=== PATIENT | male | born 1980 | race Two or more races ===

== ENCOUNTER 2021-05-08 10:00 | Inpatient (IN) | payer MEDICAID, OTHER ==
[~2021-05-08] VITALS: Ht 177.8 cm; Wt 90.7 kg
[2021-05-08] MEDS ORDERED: IV NORMAL SALINE 1000 ML BAG IV ONE (10:15)
[2021-05-08 10:35] LABS: HEMATOCRIT 55.2 % (36.7-47.1); MEAN CORPUSCULAR HEMOGLOBIN 29.7 uug (23.8-33.4); MEAN CORPUSCULAR VOLUME 89.6 fL (73.0-96.2); PLATELET COUNT (AUTO) 263 K/uL (152-348)
--- NOTE | 2021-05-08 10:37 | NUR ---
CALLED PT'S HOME PHONE NUMBER FURNISHED BY HIMSELF - WAS ABLE TO TALK TO AUNT - WHO FURNISHED LIMITTED INFORMATION ABOUT PATIENT - ALL OTHER MEMBERS OF FAMILY ARE OUT OF THE COUNTRY AT THIS TIME.
[2021-05-08 10:42] LABS: *BILIRUBIN,URIN 1+ (NEGATIVE); *BLOOD, URINE NEGATIVE (NEGATIVE); *CLARITY,URINE CLEAR (CLEAR); *COLOR,URINE YELLOW (YELLOW); *KETONES,URINE 1+ (NEGATIVE); *UROBILINOGEN,URINE 0.2 E.U./dl (NORMAL); LEUKOCYTE ESTERASE ,URINE NEGATIVE (NEGATIVE); NITRITE, URINE POSITIVE (NEGATIVE); PH,URINE 5.5 (5.0-8.0); UGLUCOSE NEGATIVE (NEGATIVE)
[2021-05-08 10:57] LABS: CARBON DIOXIDE 23 mmol/L (21-32); CHLORIDE 104 mmol/L (98-107); CREATININE 1.7 mg/dL (0.6-1.3); GLUCOSE 154 mg/dL (74-106); POTASSIUM 4.6 mmol/L (3.5-5.1); UREA NITROGEN, BLOOD 42 mg/dL (7-18)
--- NOTE | 2021-05-08 10:59 | NUR ---
PT IS IN ROOM #1B. DR HOGAN EVALUATED THE PT.
[2021-05-08 11:00] LABS: *AMPHETAMINE, URINE POSITIVE (NEGATIVE); *CANNABINOID, URINE NEGATIVE (NEGATIVE); *COCCAINE, URINE NEGATIVE (NEGATIVE); *OPIATE, URINE NEGATIVE (NEGATIVE); *PHENCYCLIDINE SCREEN,URINE NEGATIVE (NEGATIVE)
[2021-05-08 11:00] LABS: ETHANOL < 3 MG/DL (0-0)
[2021-05-08 11:03] LABS: ALANINE AMINOTRANSFERASE 65 U/L (16-63); ALKALINE PHOSPHATASE 59 U/L (50-136); ASPARTATE AMINOTRANSFERASE 42 U/L (15-37); BILIRUBIN,DIRECT 0.2 mg/dL (0.0-0.2); BILIRUBIN,TOTAL 0.7 mg/dL (0.2-1.0)
[2021-05-08 11:04] LABS: ACETAMINOPHEN < 2.0 ug/mL (10-30)
[2021-05-08] MEDS ORDERED: CEFTRIAXONE 1 G in IV DEXTROSE 5% 50 ML IV ONE (11:15)
[2021-05-08] MEDS ORDERED: IV NS 1000 ML 1,000 ML IV ONE ×2 (11:15→14:15)
[2021-05-08 11:30] LABS: THYROID STIMULATING HORMONE 0.854 mIU/mL (0.358-3.740)
[2021-05-08] MEDS ORDERED: CEFTRIAXONE /D5W 50ML IVPB **ER PYXIS IV ONE (12:01)
[2021-05-08] MEDS ORDERED: PIPERACILLIN SODIUM/TAZOBACTAM 3.375 G in IV DEXTROSE 5% 50 ML IV ONE (13:00)
[2021-05-08 13:12] LABS: BACTERIA,URINE FEW /HPF (NONE SEEN); RBC,URINE 0-3 /HPF (0-3); SQUAMOUS EPITHELIAL CELL,UR FEW /HPF (NONE SEEN)
[2021-05-08] MEDS ORDERED: PIPERACILLIN/TAZOBACTAM/D5W 50 ML IV ONE (14:09)
[2021-05-08] MEDS ORDERED: VANCOMYCIN 1G/D5W 200 ML PIGGYBACK IV ONE (14:15)
[2021-05-08] MEDS ORDERED: VANCOMYCIN IV 200 ML ONE (14:31)
--- NOTE | 2021-05-08 14:57 | NUR ---
REPORT WAS GIVEN TO ROUNDHOUSE SUPERVISOR . PT WAS TRANSFERED TO ROOM #310.
[2021-05-08 15:49] VITALS: BP 95/61
--- NOTE | 2021-05-08 15:55 | NUR ---
admitted patient to telemetry dx: sepsis and seizure. routine admission care done. dr. quispe made aware. belongings list done. bed low and locked. siderails up and padded. nsr on tele. no resp distress. kept comfortable. call light in reach.
[2021-05-08] MEDS ORDERED: ACETAMINOPHEN 325 MG TABLET PO PRN (17:45)
[2021-05-08] MEDS ORDERED: MORPHINE SULFATE 2 MG/1 ML DISP.SYRIN IV PRN (17:45)
[2021-05-08] MEDS ORDERED: LORAZEPAM 2 MG/1 ML VIAL IV PRN (17:45)
[2021-05-08] MEDS ORDERED: MAGNESIUM HYDROXIDE 30 ML LIQUID UDC PO PRN (17:45)
[2021-05-08] MEDS ORDERED: ONDANSETRON 4 MG/2 ML VIAL IV PRN (17:45)
--- NOTE | 2021-05-08 18:45 | NUR ---
patient alert and orientedx2. has been sleeping since he arrived on the unit. unable to answer questions. no resp distress. no s/sx of pain or discomfort. bed low and locked. siderails up. kept comfortable. call light in reach. will endorse to next shift.
[2021-05-08] MEDS: IV NS 1000 ML 1,000 ML IV PRN (18:51)
[2021-05-08 20:00] VITALS: BP 110/69
--- NOTE | 2021-05-08 20:26 | NUR ---
PATIENT ALERT ORIENTED, NO SOB NO CHEST PAIN. PATIENT EYES RED, FACE RED, DROWSY, PATIENT STATED THAT HE DID NOT HAVE COVID VACCINE, NO FLU VACCINE, NO PNA VACCINE, AND HE LIVES WITH HIS AUNT. PATIENT HAS NO PAST MEDICAL HISTORY, CONT TO MONITOR.
[2021-05-08] MEDS: PIPERACILLIN SODIUM/TAZOBACTAM 3.375 G in IV DEXTROSE 5% 50 ML IV SCH (21:48)
[2021-05-09] VITALS: BP 131/65
[2021-05-09] MEDS: VANCOMYCIN IV 1,000 MG in IV DEXTROSE 5% 250 ML IV SCH ×2 (02:33→14:02)
[2021-05-09 04:00] VITALS: BP 110/71
[2021-05-09] MEDS: PIPERACILLIN SODIUM/TAZOBACTAM 3.375 G in IV DEXTROSE 5% 50 ML IV SCH ×4 (05:27→23:14)
[2021-05-09] MEDS: PANTOPRAZOLE SODIUM 40 MG TABLET.DR PO SCH (06:13)
[2021-05-09 06:17] LABS: MEAN CORPUSCULAR HEMOGLOBIN 30.5 uug (23.8-33.4); MEAN CORPUSCULAR VOLUME 91.4 fL (73.0-96.2); PLATELET COUNT (AUTO) 204 K/uL (152-348)
[2021-05-09] MEDS: IV NS 1000 ML 1,000 ML IV PRN (06:32)
--- NOTE | 2021-05-09 06:58 | NUR ---
PATIENT ALERT ORIENTED, NO SOB NO CHEST PAIN, TELE MONITOR SINUS RHYTHM AT THIS TIME, NO COMPLAIN OF PAIN. PATIENT ASSISTED WITH TOILETING FOR SAFETY, CALL LIGHT WITHIN REACH.
[2021-05-09 07:20] LABS: BILIRUBIN,TOTAL 0.9 mg/dL (0.2-1.0); CREATININE 1.4 mg/dL (0.6-1.3); MAGNESIUM 2.2 mg/dL (1.8-2.4); PHOSPHOROUS 2.8 mg/dL (2.5-4.9); POTASSIUM 3.9 mmol/L (3.5-5.1); TOTAL PROTEIN, SERUM 6.4 g/dL (6.4-8.2)
--- NOTE | 2021-05-09 07:30 | NUR ---
Received patient in bed, lethargic. IV site intact, IV infusing well at 100cc/hr. Sinus rhythm. No distress identified. Denies pain. He went back to sleep. Will continue to monitor for any significant changes.
--- NOTE | 2021-05-09 08:00 | NUR ---
Dr Bustos order d/c Telemetry. Will continue to monitor. Call light within reach.
[2021-05-09] MEDS: ENOXAPARIN SODIUM 40 MG/0.4 ML DISP.SYRIN SQ SCH (08:07)
[2021-05-09 09:03] VITALS: BP 99/55
[2021-05-09 10:41] VITALS: BP 105/57
[2021-05-09] MEDS: ACIDOPHILUS/BULGARICUS CHEW TAB PO SCH ×2 (14:38→23:30)
[2021-05-09 15:43] VITALS: BP 100/58
--- NOTE | 2021-05-09 16:13 | NUR ---
Activity Therapist Consultation: Activity Therapist consultation requested for possible homelessness. Per ED physicians notes, patient was brought in by EMS to the ED on 05/08/21 after being discovered "on the street" feeling dizzy. This TELEPHONE ORDER CLERK met with patient in his assigned hospital room. Patient is a 40 year old male, who was awake and responding to this TELEPHONE ORDER CLERK, but remained lying down in his bed, facing the wall with his bed sheet pulled over his head. Patient states he came to the ED because I wasnt feeling well. Patient did not elaborate on this. Patient stated he lives at [address] [place] [address]. [id number], [place] [address]. Patient states he lives with his mother. Patient has [employer] and receives SSI as income. Patient denies use of drugs or alcohol, however per toxicology report patient tested positive for amphetamines. Patient observed to be guarded during this interview, limited with the information he provided. This TELEPHONE ORDER CLERK assessed patients needs for community resources, and patient stated he did not need any resources. Discharge plans discussed, and patient stated he would be going home once he is discharged from the hospital. Patient stated I will go myself. No further SS interventions needed at this time, however neonatal social worker will remain available, as needed.
[2021-05-09] MEDS: IV LACTATED RINGERS SOLUTION 1,000 ML IV PRN (18:32)
--- NOTE | 2021-05-09 19:22 | NUR ---
All needs attended. Due meds given. No distress identified. Will endorse to the next shift.
--- NOTE | 2021-05-09 19:38 | NUR ---
Seen by BRYAN Tolentino. Patient had loose BM, started with Floranex as ordered. Dr Almeida made rounds, started IV LR 1L x 100cc/hr. All needs attended. No distress identified. Endorsed
[2021-05-09 20:00] VITALS: BP 104/65
[2021-05-10] MEDS: VANCOMYCIN IV 1,000 MG in IV DEXTROSE 5% 250 ML IV SCH (01:55)
[2021-05-10 04:00] VITALS: BP 104/60
[2021-05-10] MEDS: PANTOPRAZOLE SODIUM 40 MG TABLET.DR PO SCH (06:07)
[2021-05-10 07:01] LABS: HEMATOCRIT 38.2 % (36.7-47.1); MEAN CORPUSCULAR HEMOGLOBIN 30.1 uug (23.8-33.4); MEAN CORPUSCULAR VOLUME 87.5 fL (73.0-96.2); PLATELET COUNT (AUTO) 236 K/uL (152-348)
[2021-05-10 07:08] LABS: CREATININE 0.8 mg/dL (0.6-1.3); POTASSIUM 3.5 mmol/L (3.5-5.1)
--- NOTE | 2021-05-10 07:10 | NUR ---
PATIENT ALERT ORIENTED, NO SOB NO CHEST PAIN, PATIENT HAS NO COMPLAIN OF PAIN. PATIENT CONT ON IV LR TOLERATE WELL. PATIENT GIVEN LACTOBACILLUS FOR GI PROPHYLAXIS, CONT TO MONITOR.
--- NOTE | 2021-05-10 08:30 | NUR ---
PT RESTING, A/OX3, ON ROOM AIR NO SIGNS OF DISTRESS, NO REPORTS OF PAIN. PT HAS BRP, IV ON THE RIGHT WRIST 20G, INFUSING LR AT 100CC/HR. BED LOW AND LOCKED, CALL LIGHT WITHIN REACH, WILL CONTINUE TO MONITOR.
[2021-05-10] MEDS: PIPERACILLIN SODIUM/TAZOBACTAM 3.375 G in IV DEXTROSE 5% 50 ML IV SCH (08:50)
[2021-05-10] MEDS: ENOXAPARIN SODIUM 40 MG/0.4 ML DISP.SYRIN SQ SCH (08:55)
[2021-05-10 08:58] VITALS: BP 112/71
[2021-05-10] MEDS: ACIDOPHILUS/BULGARICUS CHEW TAB PO SCH (09:02)
[2021-05-10] MEDS: IV LACTATED RINGERS SOLUTION 1,000 ML IV PRN (11:40)
[2021-05-10 11:54] VITALS: BP 91/56
[2021-05-10] MEDS ORDERED: VANCOMYCIN IV 1,500 MG in IV DEXTROSE 5% 500 ML IV SCH (12:00)
[2021-05-10] MEDS ORDERED: PIPERACILLIN SODIUM/TAZOBACTAM 3.375 G in IV DEXTROSE 5% 50 ML IV SCH (15:00)
[2021-05-10] MEDS ORDERED: CEPH500C2 PO (15:12)
[2021-05-10] MEDS ORDERED: ACID1TAB4 PO (15:13)
[2021-05-10 15:32] VITALS: BP 105/57
--- NOTE | 2021-05-10 17:15 | NUR ---
PT DISCHARGED WITH PAPERWORK IN HAND, PT A/OX4, ON ROOM AIR, NO SIGNS OF DISTRESS, NO REPORTS OF PAIN. PT VITALS WNL, PT GIVEN EXIT CARE INSTRUCTIONS, VERBALIZED UNDERSTANDING, MEDICATIONS SENT TO PREFERRED PHARMACY.
== END 2021-05-10 17:15 | disposition home or self-care (01) | DRG 422 ==
LOC: ER 10:00 → TELE3 15:27 → MEDSURG3 05-09 09:00
PROVIDERS: ADMIT Internal Medicine; ATTEND Nurse Practitioner Acute Care
DX: E86.0 Dehydration (principal); N17.0 Acute kidney failure with tubular necrosis; G92 Toxic encephalopathy; M62.82 Rhabdomyolysis; E87.2 Acidosis; F15.10 Other stimulant abuse, uncomplicated; Z59.0 Homelessness; N39.0 Urinary tract infection, site not specified; R74.01 Elevation of levels of liver transaminase levels; Z20.822 Contact with and (suspected) exposure to COVID-19; T67.5XXA Heat exhaustion, unspecified, initial encounter; X30.XXXA Exposure to excessive natural heat, initial encounter; Y93.9 Activity, unspecified; Y92.89 Other specified places as the place of occurrence of the external cause
CPT/HCPCS: 36415; 70030-TC; 70450; 71045; 72125; 83605; 83735; 84100; 84443; 85025; 85730; 87040; 87086; 93005; A4663; G0378; G0480; J0696; J1650; J2543; J3370; J7030; J7050; J7060; J7120

== ENCOUNTER 2021-11-25 05:08 | Emergency (ER) | payer OTHER ==
[~2021-11-25] VITALS: Ht 177.8 cm; Wt 90.7 kg
[~2021-11-25 05:08] MED LIST: ACID1TAB4 PO; CEPH500C2 PO
--- NOTE | 2021-11-25 07:27 | NUR ---
Lead Programmer Analyst assumes care, nursing SBAR received from previous RN Ana M. 1st contact with patient, he is alseep, easily arousable, respiration: easy, moving all extremities, OX4 when awake, calm & cooperative@this time. Patient initially just wanted a blanket in ER waiting area and did not have any ER complaints but wanted to sleep in a safe area then changed his mind and registered as an ER patient with no particular complaints. Patient was seen by Dr Macias then by Dr Schreiber. No ER MD orders@this time.
--- NOTE | 2021-11-25 10:05 | NUR ---
Patient is resting comfortably on gurney with eyes closed, no acute change in condition seen.
--- NOTE | 2021-11-25 10:54 | NUR ---
PT STATED HE WANTS TO BE DISCHARGED. PT DOES NOT WANT TTO WAIT FOR D/C PAPERWORK. PT RECEIVED [facility] D/C INSTRUCTIONS AND LEFT [facility] ER.
[2021-11-25 10:57] VITALS: BP 136/88
== END 2021-11-25 11:17 | disposition home or self-care (01) ==
LOC: ER 05:11
DX: F15.10 Other stimulant abuse, uncomplicated (principal); Z59.00 Homelessness unspecified; F20.9 Schizophrenia, unspecified
CPT/HCPCS: A4663